=== PATIENT | male | born 1975 | race American Indian/Alaskan Native ===

== ENCOUNTER 2025-07-04 13:21 | Inpatient (IN) | payer OTHER ==
[~2025-07-04] VITALS: Ht 172.7 cm; Wt 81.6 kg
[2025-07-04 15:09] LABS: PLATELET COUNT (AUTO) 285 K/uL (152-348); RED BLOOD CELL COUNT(AUTO) 4.50 MIL/uL (4.06-5.63); RED CELL DISTRIBUTION WIDTH 15.3 % (12.1-16.2); WHITE BLOOD COUNT (AUTO) 13.1 K/uL (3.6-10.2)
[2025-07-04 15:16] LABS: CREATININE 0.6 mg/dL (0.6-1.3); SODIUM SERUM 140 mmol/L (136-145); UREA NITROGEN, BLOOD 9 mg/dL (7-18)
[2025-07-04 15:22] LABS: ASPARTATE AMINOTRANSFERASE 41 U/L (15-37); TOTAL PROTEIN, SERUM 7.5 g/dL (6.4-8.2)
[2025-07-04] MEDS ORDERED: PIPERACILLIN/TAZOBACTAM/D5W 50 ML IV ONE (18:38)
[2025-07-04] MEDS: PIPERACILLIN SODIUM/TAZOBACTAM 3.375 G in IV DEXTROSE 5% 50 ML IV ONE (18:57)
[2025-07-04] MEDS: IV NS 1000 ML 1,000 ML IV ONE (18:57)
[2025-07-05] MEDS ORDERED: PIPERACILLIN/TAZOBACTAM/D5W 50 ML IV ONE (00:57)
[2025-07-05] MEDS: PIPERACILLIN SODIUM/TAZOBACTAM 3.375 G in IV DEXTROSE 5% 50 ML IV ONE (01:06)
[2025-07-05] MEDS ORDERED: MAGNESIUM HYDROXIDE 30 ML LIQUID UDC PO PRN (03:30)
[2025-07-05] MEDS ORDERED: ONDANSETRON 4 MG/2 ML VIAL IV PRN (03:30)
[2025-07-05] MEDS ORDERED: IV LACTATED RINGERS SOLUTION 1,000 ML IV SCH (03:30)
[2025-07-05] MEDS ORDERED: MORPHINE SULFATE 4 MG/1 ML DISP.SYRIN IV PRN (03:30)
[2025-07-05] MEDS ORDERED: ACETAMINOPHEN 325 MG TABLET PO PRN (03:30)
[2025-07-05] MEDS: IV LACTATED RINGERS SOLUTION 1,000 ML IV PRN (06:14)
[2025-07-05 06:52] LABS: PLATELET COUNT (AUTO) 279 K/uL (152-348); RED BLOOD CELL COUNT(AUTO) 4.29 MIL/uL (4.06-5.63); RED CELL DISTRIBUTION WIDTH 15.2 % (12.1-16.2); WHITE BLOOD COUNT (AUTO) 13.5 K/uL (3.6-10.2)
[2025-07-05 07:17] LABS: CREATININE 0.6 mg/dL (0.6-1.3); SODIUM SERUM 139 mmol/L (136-145); UREA NITROGEN, BLOOD 7 mg/dL (7-18)
[2025-07-05] MEDS ORDERED: PIPERACILLIN SODIUM/TAZOBACTAM 3.375 G in IV DEXTROSE 5% 50 ML IV SCH (09:00)
[2025-07-05] MEDS: PANTOPRAZOLE SODIUM 40 MG VIAL IV SCH (09:16)
[2025-07-05] MEDS: PIPERACILLIN SODIUM/TAZOBACTAM 3.375 G in IV DEXTROSE 5% 100 ML IV SCH (09:16)
[2025-07-05 11:09] VITALS: BP 109/64; TEMP 99.7; O2SAT 97
[2025-07-05] MEDS: POTASSIUM CHLORIDE 50 ML IV SCH (12:43)
[2025-07-05 15:18] VITALS: BP 112/72; TEMP 99.7; O2SAT 98
[2025-07-05 19:15] VITALS: BP 98/61; TEMP 99.5; O2SAT 96
[2025-07-06 06:19] VITALS: BP 101/64; TEMP 98.9; O2SAT 99
[2025-07-06] MEDS ORDERED: MIDAZOLAM HCL 2 MG/2 ML VIAL ONE (06:47)
[2025-07-06] MEDS ORDERED: FENTANYL CITRATE 100 MCG/2 ML AMPUL ONE (06:47)
[2025-07-06 06:59] LABS: CREATININE 0.7 mg/dL (0.6-1.3); SODIUM SERUM 138.0 mmol/L (136-145); UREA NITROGEN, BLOOD 9.0 mg/dL (7-18)
[2025-07-06] MEDS ORDERED: GLYCOPYRROLATE 0.2 MG/ML VIAL ONE ×2 (11:00)
[2025-07-06] MEDS ORDERED: VECURONIUM BROMIDE 10 MG VIAL ONE (11:00)
[2025-07-06] MEDS ORDERED: LIDOCAINE-MPF 2% 5 ML VIAL ONE (11:00)
[2025-07-06] MEDS ORDERED: KETOROLAC TROMETHAMINE 30 MG INJ ONE (11:00)
[2025-07-06] MEDS ORDERED: SUCCINYLCHOLINE CHLORIDE 200 MG/10 ML VIAL ONE (11:00)
[2025-07-06] MEDS ORDERED: PROPOFOL 200 MG/20 ML BOTTLE ONE (11:00)
[2025-07-06] MEDS ORDERED: NEOSTIGMINE METHYLSULFATE 10 MG/10 ML VIAL ONE (11:00)
[2025-07-06] MEDS ORDERED: DEXAMETHASONE SOD PHOSPHATE 4 MG INJ ONE (11:00)
[2025-07-06] MEDS ORDERED: CEFAZOLIN 1 G VIAL ONE ×2 (11:00)
[2025-07-06] MEDS ORDERED: LIDOCAINE HCL 1% 20 ML VIAL ONE (11:05)
[2025-07-06] MEDS ORDERED: BUPIVACAINE/EPI PF 0.5% 10 ML VIAL ONE (11:05)
[2025-07-06] MEDS ORDERED: FENTANYL CITRATE 100 MCG/2 ML AMPUL IV PRN (13:00)
[2025-07-06 13:34] VITALS: BP 131/76
[2025-07-06 16:20] VITALS: O2SAT 98
[2025-07-06 16:44] VITALS: BP 102/60; TEMP 98.9; O2SAT 99
[2025-07-06 19:48] VITALS: BP 104/59; TEMP 98.8; O2SAT 96
[2025-07-07] MEDS: OXYCODONE HCL 5 MG TABLET PO PRN (00:23)
[2025-07-07 03:53] VITALS: O2SAT 98
[2025-07-07 05:34] VITALS: BP 107/68; TEMP 98.7; O2SAT 96
[2025-07-07 06:50] LABS: PLATELET COUNT (AUTO) 342 K/uL (152-348); RED BLOOD CELL COUNT(AUTO) 3.94 MIL/uL (4.06-5.63); RED CELL DISTRIBUTION WIDTH 15.1 % (12.1-16.2); WHITE BLOOD COUNT (AUTO) 13.1 K/uL (3.6-10.2)
[2025-07-07 07:05] LABS: ASPARTATE AMINOTRANSFERASE 36.0 U/L (15-37); CREATININE 0.7 mg/dL (0.6-1.3); SODIUM SERUM 140.0 mmol/L (136-145); TOTAL PROTEIN, SERUM 6.6 g/dL (6.4-8.2); UREA NITROGEN, BLOOD 7.0 mg/dL (7-18)
[2025-07-07 10:34] VITALS: BP 118/65; TEMP 99.5; O2SAT 96
[2025-07-08] MEDS ORDERED: PANTOPRAZOLE SODIUM 40 MG TABLET.DR PO SCH (07:00)
== END 2025-07-07 13:40 | disposition home or self-care (01) | DRG 263 ==
LOC: ER 13:21 → MEDSURG3 07-05 03:20
PROC: 0FT44ZZ Resection of Gallbladder, Percutaneous Endoscopic Approach (ICD-10-PCS; principal; 2025-07-06 09:30)
DX: K80.01 Calculus of gallbladder with acute cholecystitis with obstruction (principal); F17.210 Nicotine dependence, cigarettes, uncomplicated
CPT/HCPCS: 36415; 71045; 78445; 83690; 83735; 84100; 84443; 85025; 85730; A9537; G0378; J0330; J0690; J1100; J1885; J2250; J2470; J2543; J3010; J3480; J3490; J7040; J7120

== ENCOUNTER 2025-07-12 10:22 | Emergency (ER) | payer OTHER ==
[~2025-07-12] VITALS: Ht 167.6 cm; Wt 81.6 kg
[2025-07-12 10:35] VITALS: BP 129/80
[2025-07-12 11:30] VITALS: BP 126/76; O2SAT 99
== END 2025-07-12 11:31 | disposition home or self-care (01) ==
LOC: ER 10:22
DX: Z48.89 Encounter for other specified surgical aftercare (principal); Z90.49 Acquired absence of other specified parts of digestive tract
CPT/HCPCS: A4606; A4663